=== PATIENT | female | born 1960 | race Two or more races ===

== ENCOUNTER 2016-11-04 17:10 | Emergency (ER) | payer MEDICAID ==
[~2016-11-04] VITALS: Ht 162.6 cm; Wt 90.7 kg
[~2016-11-04 17:10] MED LIST: AML5T PO; BEN10T PO; ESCI10TA PO; GABA300C8 PO; GLIP-116 PO; INSLANTI SC; QUET200T3 PO; SITA100T7 PO
[2016-11-04] MEDS ORDERED: BENAZEPRIL HCL 10 MG TAB PO ONE (18:45)
[2016-11-04] MEDS: QUEtiapine FUMARATE 25 MG TAB PO SCH (19:24)
[2016-11-04] MEDS ORDERED: InsuLIN REG 1unit/0.01ml Soln (100units/ml) SC ONE (20:30)
[2016-11-05] MEDS ORDERED: DEXTROSE (50%) 50ML SYRG IV PRN (09:45)
[2016-11-05] MEDS: CITALOPRAM HYDROBR 20 MG TAB PO SCH (09:57)
[2016-11-05] MEDS: busPIRone HCL 10 MG TAB PO SCH ×2 (09:57→10:00)
[2016-11-05] MEDS: amLODIPine BESYLATE 5 MG TAB PO SCH (09:57)
[2016-11-05] MEDS: InsuLIN REG 1unit/0.01ml Soln (100units/ml) SC SCH ×2 (09:58→21:29)
[2016-11-05] MEDS: ACCU-CHEK COMFORT CURVE STRIP VI SCH ×2 (09:59→21:29)
[2016-11-05] MEDS: QUEtiapine FUMARATE 25 MG TAB PO SCH (21:30)
[2016-11-06] MEDS: busPIRone HCL 10 MG TAB PO SCH ×3 (02:27→22:28)
[2016-11-06] MEDS: ACCU-CHEK COMFORT CURVE STRIP VI SCH ×4 (08:32→22:18)
[2016-11-06] MEDS: InsuLIN REG 1unit/0.01ml Soln (100units/ml) SC SCH ×4 (08:41→22:29)
[2016-11-06] MEDS: CITALOPRAM HYDROBR 20 MG TAB PO SCH (09:38)
[2016-11-06] MEDS: amLODIPine BESYLATE 5 MG TAB PO SCH (09:39)
[2016-11-06] MEDS: QUEtiapine FUMARATE 25 MG TAB PO SCH (18:13)
[2016-11-07] MEDS: ACCU-CHEK COMFORT CURVE STRIP VI SCH ×2 (07:22→11:49)
[2016-11-07] MEDS: InsuLIN REG 1unit/0.01ml Soln (100units/ml) SC SCH ×2 (07:38→12:22)
[2016-11-07 08:57] VITALS: BP 135/73
[2016-11-07] MEDS ORDERED: amLODIPine BESYLATE 5 MG TAB ONE (10:35)
[2016-11-07] MEDS ORDERED: busPIRone HCL 10 MG TAB ONE (10:35)
[2016-11-07] MEDS: CITALOPRAM HYDROBR 20 MG TAB PO SCH (10:45)
[2016-11-07] MEDS: amLODIPine BESYLATE 5 MG TAB PO SCH (10:45)
[2016-11-07] MEDS: busPIRone HCL 10 MG TAB PO SCH (10:45)
== END 2016-11-07 17:16 | disposition left against medical advice (07) ==
LOC: ER 17:17
DX: F32.9 Major depressive disorder, single episode, unspecified (principal); T14.91 Suicide attempt; F41.9 Anxiety disorder, unspecified; E11.9 Type 2 diabetes mellitus without complications; I10 Essential (primary) hypertension
CPT/HCPCS: 82962; 96372; 97110; 97116; 97530; 99284; J1815

== ENCOUNTER 2023-10-20 11:31 | Emergency (ER) | payer MEDICAID ==
[~2023-10-20] VITALS: Ht 154.9 cm; Wt 89.8 kg
[~2023-10-20 11:31] MED LIST changes: -BEN10T PO; +BENA10TA16 PO; +GABA-1250 PO; -GABA300C8 PO; -GLIP-116 PO; +GLIP10TA9 PO; -QUET200T3 PO; +QUET200T4 PO
[2023-10-20 13:21] VITALS: BP 122/71; PULSE 87; RESP 16; O2SAT 100
[2023-10-20] MEDS ORDERED: ACETAMINOPHEN 500 MG TAB PO ONE ×2 (14:00→14:09)
[2023-10-20 14:15] VITALS: TEMP 97.6
[2023-10-20] MEDS ORDERED: ACET-1080 PO (15:00)
== END 2023-10-20 15:06 | disposition home or self-care (01) ==
LOC: ER 11:31
DX: S92.354A Nondisplaced fracture of fifth metatarsal bone, right foot, initial encounter for closed fracture (principal); S62.634A Displaced fracture of distal phalanx of right ring finger, initial encounter for closed fracture; S93.401A Sprain of unspecified ligament of right ankle, initial encounter; I10 Essential (primary) hypertension; E11.9 Type 2 diabetes mellitus without complications; Z79.4 Long term (current) use of insulin; Z79.899 Other long term (current) drug therapy; W01.0XXA Fall on same level from slipping, tripping and stumbling without subsequent striking against object, initial encounter; Y93.89 Activity, other specified; Y92.89 Other specified places as the place of occurrence of the external cause; Y99.8 Other external cause status
CPT/HCPCS: 29130; 29515; 73130; 73610; 73630

== ENCOUNTER 2024-01-12 17:57 | Inpatient (IN) | payer MEDICAID, OTHER ==
[~2024-01-12] VITALS: Ht 160 cm; Wt 83.9 kg
[~2024-01-12 17:57] MED LIST changes: +ACET-1080 PO
[2024-01-12 19:21] LABS: Basophils # (auto) 0 10 ^3/uL (0-0.2); Basophils % (auto) 0.4 % (0.0-2.0); Eosinophils # (auto) 0.1 10 ^3/uL (0-0.8); Eosinophils % (auto) 1.4 % (0.0-7.0); Hematocrit 37.9 % (36.0-46.0); Hemoglobin 12.7 g/dL (12.2-16.2); Lymphocytes # (auto) 2.7 10 ^3/uL (0.4-5.4); Lymphocytes % (auto) 37.2 % (10.0-50.0); Mean Corpuscular Hemoglobin 28.8 pg (28.0-32.0); Mean Corpuscular Hgb Conc. 33.5 g/dL (32.0-36.0); Mean Corpuscular Volume 85.9 fL (80.0-100.0); Monocytes # (auto) 0.3 10 ^3/uL (0-1.3); Monocytes % (auto) 4.2 % (0.0-12.0); Neutrophils # (auto) 4.2 10 ^3/uL (1.6-8.6); Neutrophils % (auto) 56.8 % (37.0-80.0); Nucleated Red Blood Cells % 0.1 %; Red Blood Cells 4.41 10^6/uL (4.0-5.20); White Blood Cell 7.4 10^3/uL (4.4-10.8)
[2024-01-12 19:39] LABS: Alanine Aminotransferase 25 U/L (7-40); Albumin 4.2 g/dL (3.2-4.8); Alkaline Phosphatase 160 U/L (46-116); Anion Gap 6 (5-15); Aspartate Aminotransferase 33 U/L (13-40); Blood Urea Nitrogen 8 mg/dL (9-23); Calcium 8.8 mg/dL (8.7-10.4); Carbon Dioxide 24 mmol/L (20-30); Chloride 106 mmol/L (98-107); Glucose 400 mg/dL (74-106); Lipase 52 U/L (12-53); Potassium 4.4 mmol/L (3.5-5.1); Sodium 136 mmol/L (136-145)
[2024-01-12 19:40] LABS: Bilirubin, Total 0.2 mg/dL (0.2-1.0); Total Protein 6.7 g/dL (5.7-8.2)
[2024-01-12] MEDS: MORPHINE SULFATE 4 MG/ML SYR/VIAL IV ONE (21:30)
[2024-01-12] MEDS: FAMOTIDINE (10MG/ML) 2ML VL IV ONE (21:30)
[2024-01-12] MEDS: ONDANSETRON HCL 4 MG/2 ML VIAL IV ONE (21:30)
[2024-01-12] MEDS ORDERED: MORPHINE SULFATE INJ 2 MG/ml SYRG IV PRN (21:45)
[2024-01-12] MEDS ORDERED: DEXTROSE (50%) 50ML SYRG IV PRN (21:45)
[2024-01-12] MEDS ORDERED: ONDANSETRON HCL 4 MG/2 ML VIAL IV PRN (21:45)
[2024-01-12] MEDS ORDERED: NITROGLYCERIN 0.4 MG SL TAB SL PRN (21:45)
[2024-01-12] MEDS ORDERED: ACETAMINOPHEN 325 MG TAB PO PRN (21:45)
[2024-01-12] MEDS ORDERED: hydrALAZINE HCL 20 MG/ML VL IV PRN (21:45)
[2024-01-13] MEDS: ACCU-CHEK COMFORT CURVE STRIP VI SCH (02:14)
[2024-01-13] MEDS: InsuLIN REG 1unit/0.01ml Soln (100units/ml) SC SCH (02:20)
[2024-01-13 02:29] VITALS: BP 120/50; PULSE 68; RESP 16; TEMP 98.3; O2SAT 96
[2024-01-13] MEDS: SODIUM CHLORIDE 0.9% 1,000 ML IV SCH (02:44)
[2024-01-13 04:39] VITALS: BP 146/42; PULSE 64; RESP 16; TEMP 98.3; O2SAT 98
[2024-01-13 08:51] LABS: Basophils # (auto) 0 10 ^3/uL (0-0.2); Basophils % (auto) 0.2 % (0.0-2.0); Eosinophils # (auto) 0.1 10 ^3/uL (0-0.8); Eosinophils % (auto) 1.7 % (0.0-7.0); Hematocrit 37.6 % (36.0-46.0); Hemoglobin 12.4 g/dL (12.2-16.2); Lymphocytes # (auto) 2.9 10 ^3/uL (0.4-5.4); Lymphocytes % (auto) 39.6 % (10.0-50.0); Mean Corpuscular Hemoglobin 28.1 pg (28.0-32.0); Mean Corpuscular Hgb Conc. 33.1 g/dL (32.0-36.0); Mean Corpuscular Volume 84.9 fL (80.0-100.0); Monocytes # (auto) 0.4 10 ^3/uL (0-1.3); Monocytes % (auto) 5.4 % (0.0-12.0); Neutrophils # (auto) 3.9 10 ^3/uL (1.6-8.6); Neutrophils % (auto) 53.1 % (37.0-80.0); Nucleated Red Blood Cells % 0.1 %; Red Blood Cells 4.43 10^6/uL (4.0-5.20); Red Cell Distribution Width 14.1 % (11.8-14.3); White Blood Cell 7.3 10^3/uL (4.4-10.8)
[2024-01-13] MEDS: HYDROcodone-ACET 5/325MG TAB PO PRN (08:57)
[2024-01-13 09:00] VITALS: BP 130/53; PULSE 65; RESP 16; TEMP 98.4; O2SAT 95
[2024-01-13 09:04] LABS: Alanine Aminotransferase 22 U/L (7-40); Albumin 3.9 g/dL (3.2-4.8); Alkaline Phosphatase 148 U/L (46-116); Anion Gap 3 (5-15); Aspartate Aminotransferase 33 U/L (13-40); BUN/Creatinine Ratio 16.9 (10.0-20.0); Bilirubin, Total 0.4 mg/dL (0.2-1.0); Blood Urea Nitrogen 10 mg/dL (9-23); Carbon Dioxide 28 mmol/L (20-30); Chloride 112 mmol/L (98-107); Glucose 121 mg/dL (74-106); Potassium 3.8 mmol/L (3.5-5.1); Sodium 143 mmol/L (136-145); Total Protein 6.2 g/dL (5.7-8.2)
[2024-01-13 13:00] VITALS: BP 143/44; PULSE 71; RESP 17; TEMP 98.5; O2SAT 97
[2024-01-13 15:02] LABS: Triglycerides 134 mg/dL (< 150)
[2024-01-13 15:03] LABS: LDL Cholesterol 52 mg/dL (< 100)
[2024-01-13 15:04] LABS: Cholesterol 128 mg/dL (< 200); HDL Cholesterol 53 mg/dL (40-59)
[2024-01-13] MEDS: cefTRIAXone 1GM/50ML D5W 50 ML IV ONE (15:52)
[2024-01-13] MEDS: PANTOPRAZOLE 40 MG/10 ML VIAL INJ IV ONE (15:52)
[2024-01-13] MEDS: ENOXAPARIN SOD 40 MG/0.4 ML SYRINGE SC ONE (15:54)
[2024-01-13 17:00] VITALS: BP 150/79; PULSE 91; RESP 20; TEMP 98.7; O2SAT 95
[2024-01-13] MEDS: metroNIDAZOLE 500MG/100ML 100 ML IV ONE (17:15)
[2024-01-13 18:22] LABS: Urine Bacteria FEW /hpf (None Seen); Urine Blood Negative /uL (Negative); Urine Clarity Clear (Clear); Urine Color Colorless (Yellow); Urine Mucus FEW (None Seen); Urine Protein, UAD 1+ (Negative); Urine Specific Gravity 1.019 (1.001-1.035); Urine Urobilinogen Normal (Negative); Urine WBC 1 /hpf (0 - 5); Urine pH 7.5 (5.0-8.0)
[2024-01-13 18:30] LABS: Amphetamine Screen, Urine Neg (NEGATIVE); Barbiturate Scree,Urine Neg (NEGATIVE); Benzodiazephine Screen, Urine Neg (NEGATIVE); Cannabinoid Screen, Urine Neg (NEGATIVE); Cocaine Screen, Urine Neg (NEGATIVE); Opiate Scree,Urine Neg (NEGATIVE); Phencyclidine Screen, Urine Neg (NEGATIVE)
[2024-01-13] MEDS: metroNIDAZOLE 500MG/100ML 100 ML IV SCH (21:21)
[2024-01-13] MEDS: MORPHINE SULFATE INJ 2 MG/ml SYRG IV PRN (21:24)
[2024-01-13 22:25] VITALS: BP 154/56; PULSE 63; RESP 21; TEMP 98.2; O2SAT 95
[2024-01-14 05:00] VITALS: BP 138/58; PULSE 66; RESP 20; TEMP 98.5; O2SAT 96
[2024-01-14 07:17] LABS: Alanine Aminotransferase 28 U/L (7-40); Alkaline Phosphatase 141 U/L (46-116); Anion Gap 1 (5-15); Aspartate Aminotransferase 43 U/L (13-40); BUN/Creatinine Ratio 10.5 (10.0-20.0); Blood Urea Nitrogen 6 mg/dL (9-23); Calcium 8.9 mg/dL (8.5-10.1); Carbon Dioxide 28 mmol/L (20-30); Chloride 109 mmol/L (98-107); Glucose 144 mg/dL (74-106); Potassium 3.8 mmol/L (3.5-5.1); Sodium 138 mmol/L (136-145)
[2024-01-14 07:18] LABS: Albumin 3.9 g/dL (3.2-4.8); Basophils # (auto) 0 10 ^3/uL (0-0.2); Basophils % (auto) 0.3 % (0.0-2.0); Bilirubin, Total 0.5 mg/dL (0.2-1.0); Eosinophils # (auto) 0.1 10 ^3/uL (0-0.8); Eosinophils % (auto) 1.9 % (0.0-7.0); Hematocrit 36.8 % (36.0-46.0); Hemoglobin 12.3 g/dL (12.2-16.2); Lymphocytes # (auto) 2.8 10 ^3/uL (0.4-5.4); Lymphocytes % (auto) 40.9 % (10.0-50.0); Mean Corpuscular Hemoglobin 28.3 pg (28.0-32.0); Mean Corpuscular Hgb Conc. 33.5 g/dL (32.0-36.0); Mean Corpuscular Volume 84.6 fL (80.0-100.0); Monocytes # (auto) 0.3 10 ^3/uL (0-1.3); Neutrophils # (auto) 3.5 10 ^3/uL (1.6-8.6); Neutrophils % (auto) 51.9 % (37.0-80.0); Nucleated Red Blood Cells % 0.1 %; Red Blood Cells 4.35 10^6/uL (4.0-5.20); Red Cell Distribution Width 13.7 % (11.8-14.3); White Blood Cell 6.8 10^3/uL (4.4-10.8)
[2024-01-14 07:24] LABS: INR 1.06 (0.9-1.15); Partial Thromboplastin Time 28.7 SEC (24.5-34.5); Prothrombin Time 11.1 sec (9.3-11.8)
[2024-01-14] MEDS: cefTRIAXone 1GM/50ML D5W 50 ML IV SCH (08:43)
[2024-01-14 09:00] VITALS: BP 163/72; PULSE 63; RESP 20; TEMP 98.1; O2SAT 98
[2024-01-14] MEDS: PANTOPRAZOLE 40 MG/10 ML VIAL INJ IV SCH (13:33)
[2024-01-14] MEDS: ENOXAPARIN SOD 40 MG/0.4 ML SYRINGE SC SCH (13:33)
[2024-01-14 15:35] VITALS: BP 159/75; PULSE 66; RESP 20; TEMP 98.4; O2SAT 97
[2024-01-14] MEDS: LISINOPRIL 5 MG TAB PO ONE (16:12)
[2024-01-14] MEDS: amLODIPine BESYLATE 5 MG TAB PO ONE (16:14)
[2024-01-14 17:00] VITALS: BP 134/63; PULSE 70; RESP 20; TEMP 98.3; O2SAT 98
[2024-01-15] MEDS ORDERED: LISINOPRIL 5 MG TAB PO SCH (10:00)
[2024-01-15] MEDS ORDERED: amLODIPine BESYLATE 5 MG TAB PO SCH (10:00)
== END 2024-01-14 19:30 | disposition home or self-care (01) ==
LOC: ER 17:57 → EAST 21:48 → OVERFLOW 21:48 → EAST 23:47
PROVIDERS: ADMIT Nurse Practitioner Family; ATTEND Nurse Practitioner Family
DX: K80.20 Calculus of gallbladder without cholecystitis without obstruction (principal); E11.65 Type 2 diabetes mellitus with hyperglycemia; F32.A Depression, unspecified; F41.9 Anxiety disorder, unspecified; I10 Essential (primary) hypertension; Z82.3 Family history of stroke; Z82.49 Family history of ischemic heart disease and other diseases of the circulatory system
CPT/HCPCS: 36415; 71111; 76705; 78226; 80053; 80061; 80307; 81001; 82962; 83036; 83690; 84484; 85025; 85610; 85730; 93005; C9113; G0378; J1815; J3490

== ENCOUNTER 2024-01-16 15:06 | Inpatient (IN) | payer OTHER ==
[~2024-01-16] VITALS: Ht 160 cm; Wt 88.4 kg
[2024-01-16 15:48] LABS: Basophils # (auto) 0 10 ^3/uL (0-0.2); Basophils % (auto) 0.2 % (0.0-2.0); Eosinophils # (auto) 0.1 10 ^3/uL (0-0.8); Eosinophils % (auto) 1.2 % (0.0-7.0); Hematocrit 38.4 % (36.0-46.0); Hemoglobin 12.9 g/dL (12.2-16.2); Lymphocytes # (auto) 2.8 10 ^3/uL (0.4-5.4); Lymphocytes % (auto) 35.8 % (10.0-50.0); Mean Corpuscular Hemoglobin 29.1 pg (28.0-32.0); Mean Corpuscular Hgb Conc. 33.5 g/dL (32.0-36.0); Mean Corpuscular Volume 86.7 fL (80.0-100.0); Monocytes # (auto) 0.3 10 ^3/uL (0-1.3); Monocytes % (auto) 4.4 % (0.0-12.0); Neutrophils # (auto) 4.6 10 ^3/uL (1.6-8.6); Neutrophils % (auto) 58.4 % (37.0-80.0); Red Blood Cells 4.43 10^6/uL (4.0-5.20); Red Cell Distribution Width 13.9 % (11.8-14.3); White Blood Cell 7.9 10^3/uL (4.4-10.8)
[2024-01-16 16:06] LABS: Urine Bacteria NONE SEEN /hpf (None Seen); Urine Blood Negative /uL (Negative); Urine Clarity Clear (Clear); Urine Color Colorless (Yellow); Urine Protein, UAD TRACE (Negative); Urine Specific Gravity 1.038 (1.001-1.035); Urine Urobilinogen Normal (Negative); Urine WBC 2 /hpf (0 - 5); Urine pH 5.5 (5.0-8.0)
[2024-01-16 16:07] LABS: Alanine Aminotransferase 34 U/L (7-40); Albumin 4.2 g/dL (3.2-4.8); Alkaline Phosphatase 161 U/L (46-116); Anion Gap 7 (5-15); Aspartate Aminotransferase 61 U/L (13-40); BUN/Creatinine Ratio 6.2 (10.0-20.0); Blood Urea Nitrogen 6 mg/dL (9-23); Calcium 9.1 mg/dL (8.5-10.1); Carbon Dioxide 26 mmol/L (20-30); Chloride 101 mmol/L (98-107); Potassium 3.7 mmol/L (3.5-5.1); Sodium 134 mmol/L (136-145)
[2024-01-16 16:08] LABS: Bilirubin, Total 0.3 mg/dL (0.2-1.0); Total Protein 6.7 g/dL (5.7-8.2)
[2024-01-16 16:18] LABS: Glucose 562 mg/dL (74-106)
[2024-01-16] MEDS ORDERED: DOCUSATE SOD 100 MG CAP PO PRN (19:15)
[2024-01-16] MEDS ORDERED: DEXTROSE (50%) 50ML SYRG IV PRN (19:15)
[2024-01-16] MEDS ORDERED: ACETAMINOPHEN 325 MG TAB PO PRN (19:15)
[2024-01-16] MEDS ORDERED: QUET1TAB88 PO (19:16)
[2024-01-16] MEDS ORDERED: ATOR20TA50 PO (19:16)
[2024-01-16] MEDS ORDERED: OXCA300T50 PO (19:16)
[2024-01-16] MEDS ORDERED: TRAZ-228 PO (19:16)
[2024-01-16] MEDS ORDERED: BUSP10TA31 PO (19:16)
[2024-01-16] MEDS: InsuLIN REG 1unit/0.01ml Soln (100units/ml) IV ONE (23:02)
[2024-01-16] MEDS: SODIUM CHLORIDE 0.9% 1,000 ML IV ONE (23:02)
[2024-01-16] MEDS: ACCU-CHEK COMFORT CURVE STRIP VI SCH (23:08)
[2024-01-16] MEDS: busPIRone HCL 10 MG TAB PO SCH (23:28)
[2024-01-16] MEDS: InsuLIN REG 1unit/0.01ml Soln (100units/ml) SC SCH (23:29)
[2024-01-16] MEDS: traZODone HCL 50 MG TAB PO SCH (23:29)
[2024-01-16] MEDS: OXcarbazepine 300 MG TAB PO SCH (23:29)
[2024-01-16] MEDS: INSULIN LANTUS (GLARGINE) 1 /0.01ml (100units/ml) SC SCH (23:30)
[2024-01-17] VITALS (8 sets, daily range): BP systolic 142–156; BP diastolic 69–85; PULSE 67–77; RESP 16–18; TEMP 98.3–98.8; O2SAT 96–98
[2024-01-17] MEDS: SODIUM CHLORIDE 0.9% 1,000 ML IV ONE (00:08)
[2024-01-17] MEDS: ONDANSETRON HCL 4 MG/2 ML VIAL IV PRN (03:18)
[2024-01-17] MEDS: MORPHINE SULFATE INJ 2 MG/ml SYRG IV PRN (03:19)
[2024-01-17] MEDS: hydrALAZINE HCL 20 MG/ML VL IV ONE (03:19)
[2024-01-17 06:42] LABS: Basophils # (auto) 0 10 ^3/uL (0-0.2); Basophils % (auto) 0.3 % (0.0-2.0); Eosinophils # (auto) 0.1 10 ^3/uL (0-0.8); Eosinophils % (auto) 1.8 % (0.0-7.0); Hematocrit 35.8 % (36.0-46.0); Hemoglobin 12.1 g/dL (12.2-16.2); Lymphocytes # (auto) 3.3 10 ^3/uL (0.4-5.4); Lymphocytes % (auto) 44.1 % (10.0-50.0); Mean Corpuscular Hemoglobin 28.7 pg (28.0-32.0); Mean Corpuscular Hgb Conc. 33.9 g/dL (32.0-36.0); Mean Corpuscular Volume 84.8 fL (80.0-100.0); Monocytes # (auto) 0.4 10 ^3/uL (0-1.3); Monocytes % (auto) 5.5 % (0.0-12.0); Neutrophils # (auto) 3.7 10 ^3/uL (1.6-8.6); Neutrophils % (auto) 48.3 % (37.0-80.0); Nucleated Red Blood Cells % 0.1 %; Red Blood Cells 4.23 10^6/uL (4.0-5.20); Red Cell Distribution Width 13.7 % (11.8-14.3); White Blood Cell 7.6 10^3/uL (4.4-10.8)
[2024-01-17 06:59] LABS: Alanine Aminotransferase 32 U/L (7-40); Albumin 3.8 g/dL (3.2-4.8); Alkaline Phosphatase 141 U/L (46-116); Anion Gap 6 (5-15); Aspartate Aminotransferase 44 U/L (13-40); BUN/Creatinine Ratio 9.9 (10.0-20.0); Bilirubin, Total 0.3 mg/dL (0.2-1.0); Blood Urea Nitrogen 7 mg/dL (9-23); Calcium 9.4 mg/dL (8.7-10.4); Carbon Dioxide 27 mmol/L (20-30); Chloride 107 mmol/L (98-107); Glucose 256 mg/dL (74-106); Sodium 140 mmol/L (136-145); Total Protein 6.1 g/dL (5.7-8.2)
[2024-01-17] MEDS: HYDROcodone-ACET 5/325MG TAB PO PRN (07:16)
[2024-01-17] MEDS: InsuLIN REG 1unit/0.01ml Soln (100units/ml) SC SCH (07:21)
[2024-01-17] MEDS ORDERED: ACETAMINOPHEN 500 MG TAB PO PRN (11:00)
[2024-01-17] MEDS: OXcarbazepine 300 MG TAB PO SCH (12:55)
[2024-01-17] MEDS: BENAZEPRIL HCL 10 MG TAB PO SCH (12:57)
[2024-01-17] MEDS ORDERED: hydrALAZINE HCL 20 MG/ML VL IV PRN (16:45)
[2024-01-17] MEDS: amLODIPine BESYLATE 5 MG TAB PO ONE (18:51)
[2024-01-17] MEDS: ATORVASTATIN 20 MG TAB PO SCH (23:06)
[2024-01-18 01:00] VITALS: BP 142/74; PULSE 63; RESP 18; TEMP 98.7; O2SAT 98
[2024-01-18 05:00] VITALS: BP 125/50; PULSE 63; RESP 18; TEMP 98.8; O2SAT 95
[2024-01-18 08:00] VITALS: BP 128/68; PULSE 62; RESP 20; TEMP 98.7; O2SAT 94
[2024-01-18 08:49] LABS: Basophils # (auto) 0 10 ^3/uL (0-0.2); Basophils % (auto) 0.4 % (0.0-2.0); Eosinophils # (auto) 0.2 10 ^3/uL (0-0.8); Eosinophils % (auto) 2.5 % (0.0-7.0); Hematocrit 35.8 % (36.0-46.0); Hemoglobin 12.2 g/dL (12.2-16.2); Lymphocytes # (auto) 3.4 10 ^3/uL (0.4-5.4); Mean Corpuscular Hemoglobin 28.7 pg (28.0-32.0); Mean Corpuscular Hgb Conc. 34.2 g/dL (32.0-36.0); Monocytes # (auto) 0.3 10 ^3/uL (0-1.3); Monocytes % (auto) 4.8 % (0.0-12.0); Neutrophils # (auto) 3.3 10 ^3/uL (1.6-8.6); Neutrophils % (auto) 45.3 % (37.0-80.0); Nucleated Red Blood Cells % 0.1 %; Red Blood Cells 4.26 10^6/uL (4.0-5.20); Red Cell Distribution Width 14.1 % (11.8-14.3); White Blood Cell 7.2 10^3/uL (4.4-10.8)
[2024-01-18 09:00] VITALS: BP 128/68; PULSE 62; RESP 20; TEMP 98.7; O2SAT 94
[2024-01-18 09:04] LABS: Chloride 108 mmol/L (98-107); Potassium 3.2 mmol/L (3.5-5.1); Sodium 142 mmol/L (136-145)
[2024-01-18 09:05] LABS: Anion Gap 6 (5-15); Carbon Dioxide 28 mmol/L (20-30)
[2024-01-18 09:06] LABS: Calcium 8.9 mg/dL (8.5-10.1)
[2024-01-18 09:11] LABS: Glucose 94 mg/dL (74-106)
[2024-01-18 09:14] LABS: BUN/Creatinine Ratio 9.3 (10.0-20.0); Blood Urea Nitrogen < 5 mg/dL (9-23)
[2024-01-18] MEDS: amLODIPine BESYLATE 5 MG TAB PO SCH (11:44)
[2024-01-18] MEDS ORDERED: AMLO1TAB23 PO (13:41)
[2024-01-18] MEDS ORDERED: DICL1GEL59 TOP (13:54)
[2024-01-18 14:56] VITALS: BP 128/68; PULSE 67; RESP 20; TEMP 97.7; O2SAT 91
== END 2024-01-18 17:28 | disposition home or self-care (01) ==
LOC: ER 15:06 → OVERFLOW 19:03 → CENTRAL 01-17 04:02
PROVIDERS: ADMIT Internal Medicine Pulmonary Disease; ATTEND Internal Medicine Pulmonary Disease
DX: K80.20 Calculus of gallbladder without cholecystitis without obstruction (principal); E11.65 Type 2 diabetes mellitus with hyperglycemia; I10 Essential (primary) hypertension; F31.9 Bipolar disorder, unspecified; Z91.199 Patient's noncompliance with other medical treatment and regimen due to unspecified reason; Z82.3 Family history of stroke; Z79.4 Long term (current) use of insulin
CPT/HCPCS: 36415; 80048; 80053; 81001; 82962; 85025; 87081; G0378; J1815; J2405